=== PATIENT | male | born 1995 | race American Indian/Alaskan Native ===

== ENCOUNTER 2018-01-20 13:37 | Emergency (ER) | payer MEDICAID ==
[2018-01-20] MEDS ORDERED: MOTRIN PO ONE (15:50)
[2018-01-20] MEDS ORDERED: ULTRAM PO ONE (15:50)
--- NOTE | 2018-01-20 15:50 | Emergency Department Report ---
Blank Doc - Documentation Documentation: 22-year-old male presents to the hospital complaining of right ankle pain. Patient woke up 3 days ago with pain. Denies known injury. Pain is at medial and lateral ankle he has difficulty putting pressure on it when he walks. Right ankle x-ray ordered Motrin and tramadol mid Level to follow
--- NOTE | 2018-01-20 17:10 | XRay Report ---
FINAL REPORT PROCEDURE: Right ankle. TECHNIQUE: Three views. HISTORY: Right ankle pain. COMPARISON: No prior studies are available for comparison. FINDINGS: The bones appear intact without fracture or dislocation. The joint spaces appear normal. The soft tissues are unremarkable. IMPRESSION: Normal study.
--- NOTE | 2018-01-20 17:44 | Emergency Department Report ---
ED Extremity Problem HPI - General Chief complaint: Extremity Problem,Nontraumatic Stated complaint: ANKLE/ABD PAIN Time Seen by Provider: 01/20/18 15:46 Source: patient Mode of arrival: Ambulatory Limitations: No Limitations - History of Present Illness Initial comments: 22-year-old male past medical history ?CKD presents with complaint of 4 days of right-sided ankle pain. Patient states that he woke up with right ankle pain and denies any discrete direct injury to right ankle or foot. Patient is ambulating without assistance but states his right ankle aches when he walks. Denies any fevers chills lower extremity swelling calf pain. States he sprained his ankle slightly on Wednesday approximately 5 days ago but cannot discretely remember how. Patient denies any other symptoms. Awake alert and oriented 3. Accompanied by family member at bedside MD Complaint: extremity pain Onset/Timin -: days(s) Location: right, lower extremity -: Yes arthralgia Severity scale (0 -10): 9 Quality: aching Consistency: intermittent Improves with: cold therapy, immobilization, elevation Worsens with: weight bearing, palpation - Related Data Previous Rx's Medication Instructions Recorded Last Taken Type Acetaminophen [Acetaminophen TAB] 500 mg PO Q6HR PRN #20 tablet 01/20/18 Unknown Rx Allergies Allergy/AdvReac Type Severity Reaction Status Date / Time No Known Allergies Allergy Verified 01/20/18 14:18 ED Review of Systems ROS: Stated complaint: ANKLE/ABD PAIN Other details as noted in HPI Constitutional: denies: chills, fever Eyes: denies: eye pain, eye discharge, vision change ENT: denies: ear pain, throat pain Respiratory: denies: cough, shortness of breath, wheezing Cardiovascular: denies: chest pain, palpitations Endocrine: no symptoms reported Gastrointestinal: denies: abdominal pain, nausea, diarrhea Genitourinary: denies: urgency, dysuria Musculoskeletal: as per HPI. denies: back pain, joint swelling, arthralgia Skin: denies: rash, lesions Neurological: denies: headache, weakness, paresthesias Psychiatric: denies: anxiety, depression Hematological/Lymphatic: denies: easy bleeding, easy bruising ED Past Medical Hx - Past Medical History Previous Medical History?: Yes Additional medical history: kidney disease - Surgical History Past Surgical History?: No Additional Surgical History: kidney disease - Social History Smoking Status: Current Every Day Smoker Substance Use Type: None - Medications Home Medications: Home Medications Medication Instructions Recorded Confirmed Last Taken Type Acetaminophen [Acetaminophen TAB] 500 mg PO Q6HR PRN #20 tablet 01/20/18 Unknown Rx ED Physical Exam - General Limitations: No Limitations General appearance: alert, in no apparent distress - Head Head exam: Present: atraumatic, normocephalic - Eye Eye exam: Present: normal appearance - ENT ENT exam: Present: mucous membranes moist - Neck Neck exam: Present: normal inspection - Respiratory Respiratory exam: Present: normal lung sounds bilaterally. Absent: respiratory distress - Cardiovascular Cardiovascular Exam: Present: regular rate, normal rhythm. Absent: systolic murmur, diastolic murmur, rubs, gallop - GI/Abdominal GI/Abdominal exam: Present: soft, normal bowel sounds - Rectal Rectal exam: Present: deferred - Extremities Exam Extremities exam: Present: normal inspection - Expanded Lower Extremity Exam Right Knee exam: Present: normal inspection, full ROM Lower Leg exam: Present: normal inspection, full ROM Ankle exam: Present: normal inspection, full ROM Foot/Toe exam: Present: normal inspection (no visible erythema no abscess no fluctuance on palpation), full ROM Neuro vascular tendon exam: Present: no vascular compromise (distal dorsalis pedis and posterior tibial pulses strong to palpation), pulse deficit Gait: Positive: observed and normal, antalgic (slightly antalgic gait due to right ankle pain) 1 - Slight pain here in examination - Back Exam Back exam: Present: normal inspection - Neurological Exam Neurological exam: Present: alert, oriented X3, CN II-XII intact, abnormal gait (slightly antalgic gait) - Psychiatric Psychiatric exam: Present: normal affect, normal mood - Skin Skin exam: Present: warm, dry, intact, normal color. Absent: rash ED Course Vital Signs 01/20/18 01/20/18 01/20/18 14:19 16:57 16:58 Temperature 97.5 F L Pulse Rate 91 H Respiratory 16 18 18 Rate Blood Pressure 133/95 Blood Pressure [Left] O2 Sat by Pulse 97 Oximetry 01/20/18 17:55 Temperature Pulse Rate 89 Respiratory 18 Rate Blood Pressure Blood Pressure 130/89 [Left] O2 Sat by Pulse 97 Oximetry ED Medical Decision Making - Medical Decision Making A/P: Right ankle sprain 1-Yaw wrap, ankle splint. X-ray shows no fracture, distal pulses and sensation intact, no appreciable swelling or erythema of right lower extremity 2-follow-up with orthopedics 3-Tylenol when necessary 4- follow-up with primary care Critical care attestation.: If time is entered above; I have spent that time in minutes in the direct care of this critically ill patient, excluding procedure time. ED Disposition Clinical Impression: Right ankle pain Qualifiers: Chronicity: acute Qualified Code(s): M25.571 - Pain in right ankle and joints of right foot Disposition: TO HOME OR SELFCARE Is pt being admited?: No Does the pt Need Aspirin: No Condition: Stable Instructions: Ankle Sprain (ED), Arthralgia (ED), RICE Therapy (ED) Prescriptions: Acetaminophen [Acetaminophen TAB] 500 mg PO Q6HR PRN #20 tablet PRN Reason: Pain Referrals: MILAGROS HEBERT MD [Staff Physician] - 3-5 Days [facility] [Provider Group] - 3-5 Days Forms: Accompanied Note, Work/School Release Form(ED) Time of Disposition: 17:40
[2018-01-20 17:56] VITALS: BP 130/89
== END 2018-01-20 17:58 | disposition home or self-care (01) ==
LOC: ED 13:37
DX: M25.571 Pain in right ankle and joints of right foot (principal); F17.200 Nicotine dependence, unspecified, uncomplicated; X58.XXXA Exposure to other specified factors, initial encounter; Y93.89 Activity, other specified; Y99.8 Other external cause status; Y92.89 Other specified places as the place of occurrence of the external cause

== ENCOUNTER 2018-01-24 18:39 | Emergency (ER) | payer MEDICAID ==
[2018-01-24 19:09] VITALS: BP 154/110
--- NOTE | 2018-01-24 22:38 | Emergency Department Report ---
ED Extremity Problem HPI - General Chief complaint: Extremity Problem,Nontraumatic Stated complaint: KNEE SWOLLEN AND ANKLE PAIN Time Seen by Provider: 01/24/18 22:23 Source: patient Mode of arrival: Ambulatory Limitations: No Limitations - History of Present Illness Initial comments: 1830 after [place] male presents to the emergency room with swelling in his right knee. Patient reports that he's been suffering from this for about one week. Patient reportedly just woke up with swelling in his right knee pain increases with movement and bearing weight. Patient denies any recent trauma to his knee. He does admit to hurting his right ankle and is currently in a stirrup brace. He reports has taken no pain medication. MD Complaint: extremity pain, extremity swelling -: week(s) (1) Location: right, knee History of Same: No -: Yes arthralgia, No fever, No associated dyspnea, No associated chest pain Severity scale (0 -10): 8 Quality: aching, sharp Consistency: intermittent Improves with: rest Worsens with: weight bearing, walking, palpation Associated Symptoms: denies other symptoms - Related Data Previous Rx's Medication Instructions Recorded Last Taken Type Acetaminophen [Acetaminophen TAB] 500 mg PO Q6HR PRN #20 tablet 01/20/18 Unknown Rx Acetaminophen/Codeine [Tylenol 1 tab PO Q6H PRN #20 tab 01/25/18 Unknown Rx /Codeine # 3 tab] Sulfamethoxazole/Trimethoprim 1 each PO BID #10 tablet 01/25/18 Unknown Rx [Bactrim Ds Tablet] Allergies Allergy/AdvReac Type Severity Reaction Status Date / Time No Known Allergies Allergy Verified 01/20/18 14:18 ED Review of Systems ROS: Stated complaint: KNEE SWOLLEN AND ANKLE PAIN Other details as noted in HPI Constitutional: denies: chills, fever Endocrine: no symptoms reported Gastrointestinal: denies: abdominal pain, nausea, diarrhea Genitourinary: denies: urgency, dysuria Musculoskeletal: joint swelling (right knee), arthralgia (right knee) Skin: denies: rash, lesions Neurological: denies: numbness, paresthesias Psychiatric: denies: anxiety, depression Hematological/Lymphatic: denies: easy bleeding, easy bruising ED Past Medical Hx - Past Medical History Previous Medical History?: Yes Additional medical history: kidney disease - Surgical History Past Surgical History?: Yes Additional Surgical History: kidney disease - Social History Smoking Status: Current Every Day Smoker Substance Use Type: None - Medications Home Medications: Home Medications Medication Instructions Recorded Confirmed Last Taken Type Acetaminophen [Acetaminophen TAB] 500 mg PO Q6HR PRN #20 tablet 01/20/18 Unknown Rx Acetaminophen/Codeine [Tylenol 1 tab PO Q6H PRN #20 tab 01/25/18 Unknown Rx /Codeine # 3 tab] Sulfamethoxazole/Trimethoprim 1 each PO BID #10 tablet 01/25/18 Unknown Rx [Bactrim Ds Tablet] ED Physical Exam - General Limitations: No Limitations General appearance: alert, in no apparent distress, other (nontoxic in appearance) - Head Head exam: Present: atraumatic, normocephalic - Expanded Lower Extremity Exam Right Hip exam: Present: normal inspection, full ROM Upper Leg exam: Present: normal inspection, full ROM. Absent: tenderness, swelling Knee exam: Present: tenderness, swelling, effusion. Absent: abrasion, laceration, deformity Lower Leg exam: Present: normal inspection, full ROM. Absent: tenderness, swelling Neuro vascular tendon exam: Present: no vascular compromise - Neurological Exam Neurological exam: Present: alert, oriented X3 - Psychiatric Psychiatric exam: Present: normal affect, normal mood - Skin Skin exam: Present: warm, dry, intact, normal color. Absent: rash ED Course Vital Signs 01/24/18 19:06 Temperature 98.4 F Pulse Rate 106 H Respiratory 16 Rate Blood Pressure 154/110 O2 Sat by Pulse 96 Oximetry ED Medical Decision Making - Lab Data Result diagrams: 01/25/18 00:11 01/25/18 00:11 - Radiology Data Radiology results: report reviewed, image reviewed FINAL REPORT PROCEDURE: XR KNEE 3V RT TECHNIQUE: RIGHT knee radiographs, AP, lateral and sunrise views. CPT 26608 HISTORY: rt knee pain with swelling COMPARISON: No prior studies are available for comparison. FINDINGS: Fracture (s) and/or Dislocation(s): None . Alignment: Normal . Joint space(s): The joint spaces are maintained. There is a moderate joint effusion. Soft tissues: Normal . Bone mineralization: Normal . Foreign bodies: None . IMPRESSION: No evidence of an acute fracture. Moderate joint effusion.. Transcribed By: [facility] Dictated By: SARA MARX MD Electronically Authenticated By: SARA MARX MD Signed Date/Time: 01/24/18 7602 - Medical Decision Making Patient has been evaluated by this provider fast track. X-ray of right knee ordered and performed shows a knee infusion Ibuprofen given for pain management CBC BMP is ordered to rule out any infection or elevated white count Patient denies any immunocompromise, not a diabetic Will refer patient to orthopedics for possible joint aspiration Ibuprofen for management of pain to be discharged on. Critical care attestation.: If time is entered above; I have spent that time in minutes in the direct care of this critically ill patient, excluding procedure time. ED Disposition Clinical Impression: Effusion, right knee Chronic kidney disease (CKD) Qualifiers: Chronic kidney disease stage: stage 2 (mild) Qualified Code(s): N18.2 - Chronic kidney disease, stage 2 (mild) Disposition: TO HOME OR SELFCARE Is pt being admited?: No Does the pt Need Aspirin: No Condition: Stable Additional Instructions: Complete antibiotics as prescribed. Please take Tylenol 3 for pain. Do not operate heavy machinery while taking the Tylenol No. 3. Prescriptions: Acetaminophen/Codeine [Tylenol /Codeine # 3 tab] 1 tab PO Q6H PRN #20 tab PRN Reason: Pain Sulfamethoxazole/Trimethoprim [Bactrim Ds Tablet] 1 each PO BID #10 tablet Referrals: PRIMARY CAREMD [Primary Care Provider] - 3-5 Days MILAGROS HEBERT MD [Staff Physician] - 3-5 Days Forms: Work/School Release Form(ED), Accompanied Note
[2018-01-24] MEDS ORDERED: MOTRIN PO ONE (23:01)
--- NOTE | 2018-01-24 23:32 | XRay Report ---
FINAL REPORT PROCEDURE: XR KNEE 3V RT TECHNIQUE: RIGHT knee radiographs, AP, lateral and sunrise views. CPT 93839 HISTORY: rt knee pain with swelling COMPARISON: No prior studies are available for comparison. FINDINGS: Fracture (s) and/or Dislocation(s): None . Alignment: Normal . Joint space(s): The joint spaces are maintained. There is a moderate joint effusion. Soft tissues: Normal . Bone mineralization: Normal . Foreign bodies: None . IMPRESSION: No evidence of an acute fracture. Moderate joint effusion..
[2018-01-25 00:47] LABS: Hematocrit 43.7 % (35.5-45.6); Hemoglobin 14.8 gm/dl (11.8-15.2); Mean Corpuscular HGB Conc 34 % (32-34); Mean Corpuscular Hemoglobin 30 pg (28-32); Mean Corpuscular Volume 88 fl (84-94); Platelet Count 294 K/mm3 (140-440); Red Blood Count 4.97 M/mm3 (3.65-5.03); Red Cell Distribution Width 12.6 % (13.2-15.2)
[2018-01-25 01:10] LABS: BUN/Creatinine Ratio 21; Blood Urea Nitrogen 31 mg/dL (9-20); Calcium 8.4 mg/dL (8.4-10.2); Hemolysis Index 20
== END 2018-01-25 01:35 | disposition home or self-care (01) ==
LOC: ED 18:39
DX: M25.461 Effusion, right knee (principal); N18.2 Chronic kidney disease, stage 2 (mild); F17.200 Nicotine dependence, unspecified, uncomplicated
CPT/HCPCS: 36415; 80048; 85025; 99284

== ENCOUNTER 2018-02-05 13:20 | Emergency (ER) | payer MEDICAID ==
[2018-02-05 14:27] VITALS: BP 142/93
--- NOTE | 2018-02-05 15:10 | XRay Report ---
FINAL REPORT EXAM: XR KNEE 3V RT HISTORY: right knee edema, pain TECHNIQUE: AP, oblique and lateral radiographs of the right knee. PRIORS: 01/24/2018. FINDINGS: There is a focal ovoid lucency with peripheral sclerosis in the subchondral region of the medial femoral condyle measuring 1.7 x 1.0 centimeters. No dislocation. Normal mineralization. Soft tissue swelling is seen anterior to the right knee. Right knee joint effusion again noted. IMPRESSION: 1. Subchondral lesion in the medial femoral condyle most likely represents an osteochondral lesion. Recommend further evaluation with MRI of the right knee. 2. Right knee joint effusion and soft tissue swelling anterior to the right knee.
[2018-02-05] MEDS ORDERED: TYLENOL #3 PO ONE (16:00)
--- NOTE | 2018-02-05 16:02 | Emergency Department Report ---
ED Extremity Problem HPI - General Chief complaint: Extremity Problem,Nontraumatic Stated complaint: RIGHT KNEE PAIN Time Seen by Provider: 02/05/18 15:55 Source: patient Mode of arrival: Ambulatory Limitations: Physical Limitation - History of Present Illness Initial comments: 22-year-old male past medical history s per pt ? CKD presents with complaint of right knee pain. Patient was recently treated for a right ankle sprain approximately 2 weeks ago. Patient states he has had ongoing pain in his right ankle or 2 weeks but is now developing pain in his right knee. Patient denies fevers chills nausea vomiting or any recent direct trauma. Patient states he has difficulty ambulating due to pain in his right knee. Patient did not follow -up with orthopedics as previously instructed MD Complaint: extremity pain Location: right, knee History of Same: Yes -: Yes arthralgia Radiation: distal Severity scale (0 -10): 6 Quality: aching Consistency: constant Improves with: nothing Worsens with: nothing - Related Data Previous Rx's Medication Instructions Recorded Last Taken Type Acetaminophen [Acetaminophen TAB] 500 mg PO Q6HR PRN #20 tablet 01/20/18 Unknown Rx Acetaminophen/Codeine [Tylenol 1 tab PO Q6H PRN #20 tab 01/25/18 Unknown Rx /Codeine # 3 tab] Sulfamethoxazole/Trimethoprim 1 each PO BID #10 tablet 01/25/18 Unknown Rx [Bactrim Ds Tablet] Acetaminophen/Codeine [Tylenol 1 tab PO Q6H PRN #12 tab 02/05/18 Unknown Rx /Codeine # 3 tab] Ibuprofen [Motrin] 600 mg PO Q8H PRN #20 tablet 02/05/18 Unknown Rx Allergies Allergy/AdvReac Type Severity Reaction Status Date / Time amoxicillin [From Augmentin] AdvReac Vomiting Verified 02/05/18 14:27 clavulanic acid AdvReac Vomiting Verified 02/05/18 14:27 [From Augmentin] ED Review of Systems ROS: Stated complaint: RIGHT KNEE PAIN Other details as noted in HPI Constitutional: denies: chills, fever Eyes: denies: eye pain, eye discharge, vision change ENT: denies: ear pain, throat pain Respiratory: denies: cough, shortness of breath, wheezing Cardiovascular: denies: chest pain, palpitations Endocrine: no symptoms reported Gastrointestinal: denies: abdominal pain, nausea, diarrhea Genitourinary: denies: urgency, dysuria Musculoskeletal: as per HPI, arthralgia. denies: back pain, joint swelling Skin: denies: rash, lesions Neurological: denies: headache, weakness, paresthesias Psychiatric: denies: anxiety, depression Hematological/Lymphatic: denies: easy bleeding, easy bruising ED Past Medical Hx - Past Medical History Additional medical history: kidney disease - Surgical History Additional Surgical History: kidney disease - Social History Smoking Status: Current Every Day Smoker Substance Use Type: None - Medications Home Medications: Home Medications Medication Instructions Recorded Confirmed Last Taken Type Acetaminophen [Acetaminophen TAB] 500 mg PO Q6HR PRN #20 tablet 01/20/18 Unknown Rx Acetaminophen/Codeine [Tylenol 1 tab PO Q6H PRN #20 tab 01/25/18 Unknown Rx /Codeine # 3 tab] Sulfamethoxazole/Trimethoprim 1 each PO BID #10 tablet 01/25/18 Unknown Rx [Bactrim Ds Tablet] Acetaminophen/Codeine [Tylenol 1 tab PO Q6H PRN #12 tab 02/05/18 Unknown Rx /Codeine # 3 tab] Ibuprofen [Motrin] 600 mg PO Q8H PRN #20 tablet 02/05/18 Unknown Rx ED Physical Exam - General Limitations: Physical Limitation ED Course Vital Signs 02/05/18 14:22 Temperature 98.8 F Pulse Rate 94 H Respiratory 16 Rate Blood Pressure 142/93 O2 Sat by Pulse 98 Oximetry ED Medical Decision Making - Medical Decision Making A/P: Right knee pain, osteochondral lesion right knee joint 1-crutches, right knee immobilizer 2-point the patient that he has a lesion on the distal femur and knee joint which she must follow-up with for further evaluation with orthopedics. 3-tylenol# 3 prn 4- Critical care attestation.: If time is entered above; I have spent that time in minutes in the direct care of this critically ill patient, excluding procedure time. ED Disposition Clinical Impression: Osteochondral lesion Knee pain, right Qualifiers: Chronicity: acute Qualified Code(s): M25.561 - Pain in right knee Disposition: TO HOME OR SELFCARE Is pt being admited?: No Does the pt Need Aspirin: No Condition: Stable Instructions: Knee Pain (ED), Arthralgia (ED), Knee Effusion (ED), RICE Therapy (ED), Crutch Instructions (ED) Additional Instructions: Please call for follow-up appointment this week with Dr. Aguiar orthopedics. Referral information provided and discharge packet. Prescriptions: Acetaminophen/Codeine [Tylenol /Codeine # 3 tab] 1 tab PO Q6H PRN #12 tab PRN Reason: Pain , Severe (7-10) Ibuprofen [Motrin] 600 mg PO Q8H PRN #20 tablet PRN Reason: Pain Referrals: [facility] [Provider Group] - 3-5 Days [facility] [Outside] - 3-5 Days MILAGROS AGUIAR MD [Staff Physician] - 3-5 Days Time of Disposition: 16:50
[2018-02-05] MEDS ORDERED: MOTRIN PO ONE (16:03)
== END 2018-02-05 17:12 | disposition home or self-care (01) ==
LOC: ED 13:20
DX: M25.561 Pain in right knee (principal); M95.8 Other specified acquired deformities of musculoskeletal system; F17.200 Nicotine dependence, unspecified, uncomplicated; Z88.1 Allergy status to other antibiotic agents

== ENCOUNTER 2018-03-01 10:51 | Outpatient (CLI) | payer MEDICAID ==
--- NOTE | 2018-03-01 14:44 | Magnetic Resonance Report ---
MR LOWER EXTREMITY JOINT RIGHT WITHOUT CONTRAST HISTORY: Pain in right knee. TECHNIQUE: Multisequence, multiplanar MRI without contrast. COMPARISON: 02/05/18 knee x-ray. FINDINGS: MRI confirms an osteochondral defect involving the weightbearing surface of the medial femoral condyle. This defect measures 1.5 cm transverse, 1.2 cm AP, and 1.0 cm craniocaudal. There is no evidence for fluid signal surrounding this defect to suggest an unstable fragment. There does appear to be mild cartilage thinning overlying the bony lesion. The remaining bone marrow signal is within normal limits for this patient's age. No fracture or additional bone lesion. The ACL, PCL, MCL, LCL complex and extensor complex are intact. The medial and lateral menisci are within normal limits. No degeneration or tear. There is a moderate to large joint effusion which extends to the suprapatellar bursa. There is a large amount of unorganized fluid in the popliteal fossa. A ruptured popliteal cyst is suspected. IMPRESSION: Osteochondral defect in the medial femoral condyle as described. Joint effusion. Ruptured popliteal cyst.
== END 2018-03-01 10:52 | disposition home or self-care (01) ==
LOC: MRI 10:51
PROVIDERS: ATTEND Orthopaedic Surgery
DX: M25.461 Effusion, right knee (principal); M66.0 Rupture of popliteal cyst; F17.210 Nicotine dependence, cigarettes, uncomplicated; Z88.1 Allergy status to other antibiotic agents
CPT/HCPCS: 73721